=== PATIENT | female | born 1950 | race Caucasian/White ===

== ENCOUNTER → 2024-05-21 | Outpatient (CLI) | payer MEDICARE, BC, SELFPAY ==
--- NOTE | 2024-05-21 16:30 | XR_ITS ---
Examination: MRI abdomen , with intravenous contrast. Exam date and time: May 21, 2024 1654 hrs. Comparison MRI abdomen without contrast May 10, 2024 Indications: Abdominal pain, episodes of bright red blood per rectum beginning May 09, 2024, 10 x 9 mm hypointense mass in the body the pancreas on MRI abdomen without contrast May 21, 2024 Technique: Multiple axial, sagittal and coronal images of the dimension have been obtained with the Siemens high-resolution 1.5 Karina MRI scanner. Axial, sagittal and coronal images are obtained post intravenous injection 20 cc gadolinium. Findings: Enhancing liver or splenic lesion Contracted gallbladder no gallstones Gallbladder wall is not thickened No extrahepatic biliary tract dilatation Pancreatic duct is dilated up to 4 mm Nonenhancing 6 mm mass in the body head of the pancreas axial image 35 No hydronephrosis No abdominal lymphadenopathy Aorta normal size Impression: Nonenhancing 6 mm mass in the pancreas, likely cyst Recommend 3 month follow-up pancreas ultrasound
== END | disposition home or self-care (01) ==
PROVIDERS: PCP Family Medicine; Referring Provider Physician Assistant; Visit Provider Physician Assistant
DX: K86.9 Disease of pancreas, unspecified (principal)
CPT/HCPCS: 74182; A9579

== ENCOUNTER → 2024-06-11 | Outpatient (CLI) | payer MEDICARE, BC, SELFPAY ==
[2024-06-11 11:37] LABS: Glucose Estimated Average 217 mg/dL (80-131); Hemoglobin A1C 9.2 % Hgb (4.8-6.0)
[2024-06-11 11:42] LABS: Alanine Aminotransferase 16 U/L (10-49); Albumin, Serum 4.3 gm/dL (3.4-4.8); Albumin/Globulin Ratio 1.9 (1.2-2.2); Alkaline Phosphatase 94 U/L (46-116); Anion Gap 7 (7-16); Aspartate Amino Transferase 10 U/L (0-34); BUN/Creatinine Ratio 14 Ratio (12-20); Bilirubin,Total 0.6 mg/dL (0.3-1.2); Blood Urea Nitrogen 14 mg/dL (9-23); Calcium 9.6 mg/dL (8.3-10.6); Calcium (Corrected) 9.6 mg/dL (8.5-10.1); Cardiac Risk Estimate 3.7 RATIO (3.7-5.6); Chloride 101 mMol/L (98-107); Cholesterol 154 mg/dL (132-200); Globulin 2.3 gm/dL (2.3-3.5); Glucose 323 mg/dL (74-106); HDL Cholesterol 42 mg/dL (40-60); LDL Cholesterol,Calculated 71 mg/dL (0-130); Osmolality,Calculated 286 (275-295); Potassium 4.5 mMol/L (3.4-5.1); Sodium 137 mMol/L (136-145); Total Protein 6.6 gm/dL (5.7-8.2); Triglycerides 205 mg/dL (30-150); eGFR 59 See Note
== END | disposition home or self-care (01) ==
PROVIDERS: PCP Physician Assistant; Referring Provider Physician Assistant; Visit Provider Physician Assistant
DX: E11.65 Type 2 diabetes mellitus with hyperglycemia (principal); E78.5 Hyperlipidemia, unspecified; E05.90 Thyrotoxicosis, unspecified without thyrotoxic crisis or storm; I10 Essential (primary) hypertension
CPT/HCPCS: 36415; 80053; 80061; 83036; 84443

== ENCOUNTER → 2024-08-19 | Outpatient (CLI) | payer MEDICARE, BC, SELFPAY ==
[2024-08-19 15:31] LABS: Collection Type, Urine Clean Catch
[2024-08-19 17:02] LABS: Bacteria,Urine 1+; Bilirubin,Urine Negative (Negative); Blood,Urine Negative (Negative); Color,Urine Yellow (Lt Yel-Yel); Glucose, Urine 2+ (Negative); Hyaline Casts,Urine < 1 /hpf (0-1); Ketones,Urine 1+ (Negative); Leukocyte Esterase,Urine Positive (Negative); Nitrite,Urine Negative (Negative); Protein,Urine Trace (Neg - Trace); RBC,Urine 4 /hpf (0-3); Specific Gravity,Urine 1.015 (1.001-1.035); Squamous Epithelial Cell,Urine 7 /hpf (0-5); Urobilinogen,Urine Negative mg/dL (0.0-1.0); WBC,Urine 57 /hpf (0-5)
[2024-08-19 17:06] LABS: Clarity,Urine Hazy (Clear/Hazy)
== END | disposition home or self-care (01) ==
LOC: SLDO 15:17
PROVIDERS: PCP Family Medicine; Referring Provider Family Medicine; Visit Provider Family Medicine
DX: N39.0 Urinary tract infection, site not specified (principal)
CPT/HCPCS: 81001; 87086

== ENCOUNTER → 2024-09-05 | Outpatient (CLI) | payer MEDICARE, BC, SELFPAY ==
--- NOTE | 2024-09-05 14:32 | XR_ITS ---
Examination: PA lateral chest 2 views Technique: Upright PA lateral chest 2 views Exam date and time: September 05 2024 1710 hrs. Comparison October 04, 2023 Indications: Shortness of breath beginning 3 days ago. Findings: Normal heart size. Lungs are clear. No pneumonia or pulmonary edema Impression: No pneumonia or pulmonary edema
== END | disposition home or self-care (01) ==
PROVIDERS: PCP Physician Assistant; Referring Provider Physician Assistant; Visit Provider Physician Assistant
DX: R06.02 Shortness of breath (principal)
CPT/HCPCS: 71046

== ENCOUNTER → 2024-09-16 | Outpatient (CLI) | payer MEDICARE, BC, SELFPAY ==
[2024-09-16 16:57] LABS: Basophils # (Auto) 0.1 Thou/mm3 (0.0-0.2); Basophils % (Auto) 1 % (0-2.5); Eosinophils # (Auto) 0.2 Thou/mm3 (0.0-0.5); Eosinophils % (Auto) 2 % (0-10); Hematocrit 37.8 % (36.0-46.0); Hemoglobin 12.5 g/dL (12.0-16.0); Immature Granulocytes % (Auto) 0 % (0-0); Immature Granulocytes Auto 0.04 Thou/mm3 (0.00-0.00); Lymphocytes # (Auto) 2.5 Thou/mm3 (1.0-4.8); Lymphocytes % (Auto) 21 % (10-50); Mean Corpuscular HGB Conc 33.1 g/dl (31.0-37.0); Mean Corpuscular Hemoglobin 28.5 pg (25.0-35.0); Mean Corpuscular Volume 86 fL (80-100); Monocytes # (Auto) 0.9 Thou/mm3 (0.0-0.8); Monocytes % (Auto) 7 % (0-12); Neutrophils # (Auto) 8.1 Thou/mm3 (1.8-7.7); Neutrophils % (Auto) 68 % (37-80); Nucleated Red Blood Cell % 0 /100 WBC (0); Platelet Count 439 Thou/mm3 (140-440); RDW Standard Deviation 39.1 fL (36.4-46.3); Red Blood Count 4.38 Miln/mm3 (4.00-5.20); White Blood Count 11.9 Thou/mm3 (3.6-11.0)
[2024-09-16 19:05] LABS: Alanine Aminotransferase 20 U/L (10-49); Albumin, Serum 3.6 gm/dL (3.4-4.8); Albumin/Globulin Ratio 1.2 (1.2-2.2); Alkaline Phosphatase 173 U/L (46-116); Anion Gap 12 (7-16); Aspartate Amino Transferase 22 U/L (0-34); BUN/Creatinine Ratio 15 Ratio (12-20); Bilirubin,Total 0.5 mg/dL (0.3-1.2); Blood Urea Nitrogen 16 mg/dL (9-23); Calcium 9.2 mg/dL (8.3-10.6); Calcium (Corrected) 9.5 mg/dL (8.5-10.1); Carbon Dioxide 24.8 mMol/L (20.0-31.0); Chloride 95 mMol/L (98-107); Creatinine (Component) 1.1 mg/dL (0.6-1.3); Globulin 2.9 gm/dL (2.3-3.5); Glucose 397 mg/dL (74-106); Osmolality,Calculated 282 (275-295); Potassium 4.5 mMol/L (3.4-5.1); Sodium 132 mMol/L (136-145); Total Protein 6.5 gm/dL (5.7-8.2); eGFR 53 See Note
== END | disposition home or self-care (01) ==
PROVIDERS: PCP Physician Assistant; Referring Provider Physician Assistant; Visit Provider Physician Assistant
DX: R53.1 Weakness (principal)
CPT/HCPCS: 36415; 80053; 81001; 85025

== ENCOUNTER 2024-09-17 13:08 | Emergency (ER) | payer MEDICARE, BC, SELFPAY ==
[2024-09-17 13:09] VITALS: BMI 24.9
[2024-09-17 13:21] VITALS: BP 113/76; PULSE 100; RESP 18; TEMP 36.7; O2SAT 99
--- NOTE | 2024-09-17 13:36 | XR_ITS ---
Examination: CT abdomen and pelvis without contrast. Coronal 3-D reconstructions. Sagittal 2-D reconstructions. Date and time of exam:September 17, 2024 at 1557 hours Comparison October 08, 2023 INDICATIONS: Abdominal pain today, 6 mm pancreatic mass on MR abdomen May 21, 2024, diffuse colitis pattern on CT abdomen May 09, 2024 CTDI: vol (mGy): 7.67 DLP: (mGycm): 4.58 Technique: Axial images of the abdomen have been obtained, 3 mm slice thickness Intravenous contrast material has not been administered. Low dose protocols were performed. One or more of the following dose reduction techniques were used; automated exposure control, adjustment of the mA and/or KV according to patient size, use of iterative reconstruction technique. Findings: Stable calcified nodule left lower lobe Multiple liver lesions including upper right lobe of the liver 5 cm, axial image 45, anterior right lobe of the liver, 3 cm image 52, left lobe liver lesion 35 mm, axial image 57 No splenic mass Hypodense pancreatic mass again noted, 12 mm image 75 No hydronephrosis Aorta normal size Absent appendix No bowel obstruction No pelvic mass Urinary bladder intact IMPRESSION: Multiple hepatic lesions, differential would include hepatic metastases, primary multifocal hepatocellular carcinoma Recommend repeat MRI abdomen follow up pre and postcontrast Stable small mass body of the pancreas
--- NOTE | 2024-09-17 13:37 | PD.EDRME ---
Rapid Medical Screening Exam RME Arrival date/time: 09/17/24 13:08 73-year-old female with a history of hypertension, presents to the emergency room with a chief complaint of generalized weakness fatigue decreased oral and fluid intake, and a significant weight loss in the last month. Daughter at bedside states she was sent over by her primary care provider as there is also a mass in her pancreas. 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 I have greeted and performed a focused initial assessment of this patient. A comprehensive ED assessment and evaluation of the patient, analysis of all test results, and completion of the medical decision making process will be conducted by additional ED providers. Chief Complaint: General Adult/Misc Complain Time Seen by Provider: 09/17/24 13:23 Vital signs: Vital Signs Temperature 98.0 F 09/17/24 13:21 Pulse Rate 100 09/17/24 13:21 Respiratory Rate 18 09/17/24 13:21 Blood Pressure 113/76 09/17/24 13:21 Pulse Oximetry (%) 99 09/17/24 13:21 Oxygen Delivery Method Room Air 09/17/24 13:21 Vital signs reviewed by provider: Yes
[2024-09-17 14:01] LABS: Basophils # (Auto) 0.1 Thou/mm3 (0.0-0.2); Basophils % (Auto) 1 % (0-2.5); Eosinophils # (Auto) 0.2 Thou/mm3 (0.0-0.5); Eosinophils % (Auto) 2 % (0-10); Hematocrit 36.8 % (36.0-46.0); Hemoglobin 12.2 g/dL (12.0-16.0); Immature Granulocytes % (Auto) 0 % (0-0); Immature Granulocytes Auto 0.04 Thou/mm3 (0.00-0.00); Lymphocytes % (Auto) 15 % (10-50); Mean Corpuscular HGB Conc 33.2 g/dl (31.0-37.0); Mean Corpuscular Hemoglobin 29.2 pg (25.0-35.0); Mean Corpuscular Volume 88 fL (80-100); Monocytes # (Auto) 1.1 Thou/mm3 (0.0-0.8); Monocytes % (Auto) 8 % (0-12); Neutrophils # (Auto) 9.9 Thou/mm3 (1.8-7.7); Neutrophils % (Auto) 74 % (37-80); Nucleated Red Blood Cell % 0 /100 WBC (0); Platelet Count 411 Thou/mm3 (140-440); RDW Standard Deviation 39.8 fL (36.4-46.3); Red Blood Count 4.18 Miln/mm3 (4.00-5.20); White Blood Count 13.3 Thou/mm3 (3.6-11.0)
[2024-09-17 14:20] LABS: INR 1.1 (0.9-1.3); Partial Thromboplastin Time 21.4 Seconds (22.0-36.0); Prothrombin Time 12.4 Seconds (9.0-12.2)
[2024-09-17 14:37] LABS: Alanine Aminotransferase 16 U/L (10-49); Albumin, Serum 3.8 gm/dL (3.4-4.8); Albumin/Globulin Ratio 1.2 (1.2-2.2); Alkaline Phosphatase 157 U/L (46-116); Anion Gap 12 (7-16); Aspartate Amino Transferase 17 U/L (0-34); BUN/Creatinine Ratio 13 Ratio (12-20); Bilirubin,Total 0.6 mg/dL (0.3-1.2); Blood Urea Nitrogen 13 mg/dL (9-23); Calcium 9.3 mg/dL (8.3-10.6); Calcium (Corrected) 9.5 mg/dL (8.5-10.1); Carbon Dioxide 24.2 mMol/L (20.0-31.0); Chloride 95 mMol/L (98-107); Estimated Creatinine Clearance 46.1 mL/min (>60); Globulin 3.3 gm/dL (2.3-3.5); Osmolality,Calculated 280 (275-295); Potassium 4.4 mMol/L (3.4-5.1); Sodium 131 mMol/L (136-145); Total Protein 7.1 gm/dL (5.7-8.2); eGFR 59 See Note
[2024-09-17 14:43] LABS: Collection Type, Urine Clean Catch
[2024-09-17 14:43] LABS: Glucose 414 mg/dL (74-106)
--- NOTE | 2024-09-17 14:45 | PC.NURSE ---
CALL FROM [facility] W/ CRITICAL GLUCOSE 414. PUT IN COMMENTS BOX FOR
[2024-09-17 14:55] LABS: Bacteria,Urine Rare; Bilirubin,Urine Negative (Negative); Blood,Urine Negative (Negative); Color,Urine Yellow (Lt Yel-Yel); Glucose, Urine 4+ (Negative); Ketones,Urine Negative (Negative); Leukocyte Esterase,Urine Positive (Negative); Nitrite,Urine Negative (Negative); PH,Urine 5.5 (5.0-7.0); Protein,Urine 1+ (Neg - Trace); RBC,Urine 14 /hpf (0-3); Specific Gravity,Urine 1.029 (1.001-1.035); Squamous Epithelial Cell,Urine 8 /hpf (0-5); Urobilinogen,Urine Negative mg/dL (0.0-1.0); WBC,Urine 97 /hpf (0-5)
[2024-09-17 14:58] LABS: Clarity,Urine Hazy (Clear/Hazy); Culture Indicated,Urine Yes
--- NOTE | 2024-09-17 15:18 | PD.EDRME ---
Rapid Medical Screening Exam RME Arrival date/time: 09/17/24 13:08 09/17/24 13:08 73-year-old female with a history of hypertension, presents to the emergency room with a chief complaint of generalized weakness fatigue decreased oral and fluid intake, and a significant weight loss in the last month. Daughter at bedside states she was sent over by her primary care provider as there is also a mass in her pancreas. 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 I have greeted and performed a focused initial assessment of this patient. A comprehensive ED assessment and evaluation of the patient, analysis of all test results, and completion of the medical decision making process will be conducted by additional ED providers. Chief Complaint: General Adult/Misc Complain Time Seen by Provider: 09/17/24 13:23 Vital signs: Vital Signs Temperature 98.0 F 09/17/24 13:21 Pulse Rate 100 09/17/24 13:21 Respiratory Rate 18 09/17/24 13:21 Blood Pressure 113/76 09/17/24 13:21 Pulse Oximetry (%) 99 09/17/24 13:21 Oxygen Delivery Method Room Air 09/17/24 13:21 RME Narrative: 09/17/24 13:08 73-year-old female with a history of hypertension, presents to the emergency room with a chief complaint of generalized weakness fatigue decreased oral and fluid intake, and a significant weight loss in the last month. Daughter at bedside states she was sent over by her primary care provider as there is also a mass in her pancreas. 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 I have greeted and performed a focused initial assessment of this patient. A comprehensive ED assessment and evaluation of the patient, analysis of all test results, and completion of the medical decision making process will be conducted by additional ED providers.
[2024-09-17 19:38] VITALS: BP 103/69; PULSE 95; RESP 18; TEMP 36.8; O2SAT 100
--- NOTE | 2024-09-17 20:23 | PD.EDADULT ---
ED General RME/HPI General Chief complaint: General Adult/Misc Complain Stated complaint: SENT BY PCP FOR CT/MRI FOR FTT Time Seen by Provider: 09/17/24 13:23 Source: patient Arrival date/time: 09/17/24 13:08 Mode of arrival: ambulatory Limitations: no limitations RME / HPI RME / HPI narrative: 09/17/24 13:08 73-year-old female with a history of hypertension, presents to the emergency room with a chief complaint of generalized weakness fatigue decreased oral and fluid intake, and a significant weight loss in the last month. Daughter at bedside states she was sent over by her primary care provider as there is also a mass in her pancreas. 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 I have greeted and performed a focused initial assessment of this patient. A comprehensive ED assessment and evaluation of the patient, analysis of all test results, and completion of the medical decision making process will be conducted by additional ED providers. Dr. Garcia's Main ED Evaluation: 73yo female with a history of HTN, hyperthyroidism, Graves' disease, DM accompanied by her daughter presents to the ED for a chief complaint of failure to thrive. Patient states she's had abnormal weight loss over the last 3 weeks, reporting she has not been able to take of herself. She states she has not been taking her daily medications on a regular basis, reporting she has not taken her DM medication in over 2 weeks. She states she can't eat much without feeling full and has been feeling more generally weak. She denies any N/V, fever, chills, dysuria, abdominal pain or any other associated symptoms. Daughter states the patient had a biopsy of her pancreatic cyst in July in [place] and was told it was benign. She states the patient is due to get another follow-up scan. Related Data Home Medications ?Medication ?Instructions ?Recorded ?Confirmed glipizide 10 mg tablet 10 mg PO DAILY 05/10/18 05/10/24 loratadine 10 mg tablet (Claritin) 10 mg PO QDAY 05/10/18 05/10/24 montelukast 10 mg tablet 10 mg PO DAILY 05/10/18 05/10/24 (Singulair) atenolol 50 mg tablet 50 mg PO QDAY 04/30/19 05/10/24 bupropion HCl 75 mg tablet 75 mg PO DAILY 04/30/19 05/10/24 citalopram 40 mg tablet (Celexa) 40 mg PO QDAY 04/30/19 05/10/24 methimazole 10 mg tablet 20 mg PO DAILY 04/30/19 05/10/24 Allergies Allergy/AdvReac Type Severity Reaction Status Date / Time Penicillins AdvReac Severe DIARHEA Verified 09/17/24 13:13 Review of Systems Review of Systems Systems Reviewed: All systems reviewed, normal except as documented Past Medical History Past Medical History CARDIAC: Positive Hypertension; Negative Cardiac Disorders or Congestive Heart Failure RESPIRATORY: Positive Sleep Apnea (CPAP); Negative Chronic Obstructive Pulmonary Disease (COPD) or Asthma GASTROINTESTINAL: Positive Colitis GENITOURINARY: Negative Renal Disease REPRODUCTIVE: Positive Breast Cancer (RIGHT BREAST) and Previous Pregnancies () MUSCULOSKELETAL: Positive Arthritis ENDOCRINE: Positive Endocrine Disorders, Hyperthyroidism and Graves' Disease; Negative Diabetes Mellitus Type 1 or Diabetes Mellitus Type 2 HEMATOLOGIC: Negative Sickle Cell Disease PSYCHO/SOCIAL: Positive Depression (ON MEDS) OTHER HISTORY: Positive Hospitalization, Chemotherapy (2 ROUNDS OF CHEMO), Radiation Therapy (5 WEEKS), Chicken Pox and Breast Cancer (RIGHT BREAST) Family History FAMILY HISTORY: Positive Family Respiratory Disorders (MOTHER AND FATHER(VALLEY FEVER)), Family Cardiac Disorders (MOTHER AND FATHER), Family Gastrointestinal Problems (FATHER(ULCERATIVE COLITIS)) and Family Cancer (BROTHER( LIPOSARCOMA)) Surgical History SURGICAL: Positive Eye Surgery (BILATERAL EYELID SURGERY) and Mastectomy (RIGHT PARTIAL MASTECTOMY) Social History SMOKING STATUS: Never smoker ED Exam General Limitations: Present no limitations General appearance: Present alert and in no apparent distress Head Head exam: Present atraumatic Eye Eye exam: Present PERRL, EOMI and other (eye sockets are sunken) ENT ENT exam: Present normal exam, normal oropharynx and mucous membranes dry Neck Neck exam: Present normal inspection, full ROM and trachea midline Chest Chest inspection: Present normal inspection and symmetric chest wall rise Respiratory Respiratory exam: Present normal lung sounds bilaterally Cardiovascular Cardiovascular exam: Present regular rate, normal rhythm and normal heart sounds Abdominal Exam Abdominal exam: Present soft; Absent distention or organomegaly Extremities Exam Extremities exam: Present normal inspection and full ROM Back Exam Back exam: Present normal inspection and full ROM; Absent other (midline tenderness) Neurological Exam Neurological exam: Present alert, oriented X3 and CN II-XII intact Psychiatric Psychiatric exam: Present normal affect and normal mood Skin Skin exam: Present warm, dry, intact, normal color and other (decreased skin turgor) Course Quality Measures none Orders Category Date Time Status CT abdomen pelvis wo con Stat Exams 09/17/24 13:[address] head/brain wo con Stat Exams 09/17/24 20:45 Completed CBC Stat Lab 09/17/24 13:46 Completed CMP [Comprehensive Metabolic Panel] Stat Lab 09/17/24 13:46 Completed Free T4 (Free Thyroxine) Stat Lab 09/17/24 13:46 Completed PT [Prothrombin Time with INR] Stat Lab 09/17/24 13:46 Completed PTT [Partial Thromboplastin Time] Stat Lab 09/17/24 13:46 Completed Thyroid Stimulating Hormone Stat Lab 09/17/24 13:46 Completed UA, C/S IF [Urinalysis, C/S if Indicated] Stat Lab 09/17/24 14:25 Completed Urine Culture Stat Lab 09/17/24 14:25 Received Sodium Chloride 0.9% 1000 ml [Ns] 1,000 ml Med 09/17/24 20:38 Discontinued IV 999 mls/hr Sodium Chloride 0.9% 1000 ml [Ns] 1,000 ml Med 09/17/24 20:41 Discontinued IV 999 mls/hr Sodium Chloride 0.9% 1000 ml [Ns] 1,000 ml Med 09/18/24 02:14 Discontinued IV 999 mls/hr cefTRIAXone/D5w 1gm IV premix [Rocephin/D5w 1gm IV Med 09/17/24 19:57 Discontinued premix] 1 gm in 50 ml IV X1 Vital Signs Vital signs: Vital Signs Temperature 98.0 F 09/17/24 13:21 Pulse Rate 100 09/17/24 13:21 Respiratory Rate 18 09/17/24 13:21 Blood Pressure 113/76 09/17/24 13:21 Pulse Oximetry (%) 99 09/17/24 13:21 Oxygen Delivery Method Room Air 09/17/24 13:21 [facility] Patient data External records reviewed:: [facility] previous records (Per chart review, patient was admitted here on 05/10/24 for acute GI bleeding.) Clinical information provided by:: patient and family Social determinants that could affect healthcare access:: none Patient has the following chronic illnesses:: HTN, hyperthyroidism, Graves' disease, DM How is presenting disease/condition affected by chronic disease/condition?: caused by Evaluation data The following diagnostics were reviewed and interpreted by me:: lab results and radiology exam(s) Lab and/or radiology exams considered but not ordered:: none Interpretation Summary: WBC count is elevated at 13.3, Sodium is 131, Glucose is elevated at 414, Anion Gap is normal, UA is positive for a UTI, according to my interpretation. Examination: CT abdomen and pelvis without contrast. Date and time of exam:September 17, 2024 at 1557 hours Comparison October 08, 2023 INDICATIONS: Abdominal pain today, 6 mm pancreatic mass on MR abdomen May 21, 2024, diffuse colitis pattern on CT abdomen May 09, 2024 Findings: Stable calcified nodule left lower lobe Multiple liver lesions including upper right lobe of the liver 5 cm, axial image 45, anterior right lobe of the liver, 3 cm image 52, left lobe liver lesion 35 mm, axial image 57 No splenic mass Hypodense pancreatic mass again noted, 12 mm image 75 No hydronephrosis Aorta normal size Absent appendix No bowel obstruction No pelvic mass Urinary bladder intact IMPRESSION: Multiple hepatic lesions, differential would include hepatic metastases, primary multifocal hepatocellular carcinoma Recommend repeat MRI abdomen follow up pre and postcontrast Stable small mass body of the pancreas Dictated By: Arvind Handley MD Examination: CT brain head without contrast. Date and time of exam:September 17, 2034. 2210 hours INDICATIONS: Weakness today Findings: No significant ventricular enlargement. Intra-axial or extra-axial hemorrhage density is not seen. No mass effect or midline shift Basal cisterns are not remarkable. Fourth ventricle is midline. Cranial vault intact. Impression: Negative for acute hemorrhage, mass effect or midline shift Dictated By: Arvind Handley MD Medications Medications considered but not ordered:: none Medication administrations:: Medication Administration History Discontinued Medications Ceftriaxone Sodium/Dextrose (Rocephin/D5w 1gm Iv Premix) 1 gm in 50 mls @ 100 mls/hr IV X1 ONE Stop: 09/17/24 20:26 Last Infusion: 09/17/24 21:48 Dose: Infused Documented By: Admin: 09/17/24 21:17 Dose: 100 mls/hr Documented By: CLOVIS Sodium Chloride (Ns) 1,000 mls @ 999 mls/hr IV .Q1H1M ONE Stop: 09/17/24 21:38 Last Infusion: 09/17/24 23:30 Dose: Infused Documented By: Admin: 09/17/24 21:08 Dose: 999 mls/hr Documented By: CLOVIS Sodium Chloride (Ns) 1,000 mls @ 999 mls/hr IV .Q1H1M ONE Stop: 09/17/24 21:41 Last Infusion: 09/17/24 23:30 Dose: Infused Documented By: Admin: 09/17/24 21:10 Dose: 999 mls/hr Documented By: CLOVIS Sodium Chloride (Ns) 1,000 mls @ 999 mls/hr IV .Q1H1M ONE Stop: 09/18/24 03:14 Last Infusion: 09/18/24 03:11 Dose: Infused Documented By: Admin: 09/18/24 02:19 Dose: 999 mls/hr Documented By: MILDRED see above Consultations Consultation(s) initiated? (list below): No Diagnosis Differential Diagnosis ED Complaint MDM: Dehydration, electrolyte imbalance, hyperglycemia Most likely diagnosis given after review of the tests above:: Acute dehydration Admission Indicated Admission indicated?: not indicated Explain why admission is indicated or not indicated:: not indicated Admission Request Was there a request for admission?: No Disposition Plan Disposition Plan: Discharge Discharge Attestation Discharge Attestation: The patient and all family members were given an opportunity to ask questions and understood the discharge instructions. Discharge instructions specifically effects, indications for sooner follow up or return to the emergency department, and the expected course of current diagnosis. Patient condition: Stable Medical Decision Making MDM Narrative MDM Narrative: 73-year-old female with history of hypertension, diabetes on Ozempic coming in with worsening weight loss and dehydration over the last 1/2 weeks to the point where the patient has lost her appetite and does not want to eat. The patient otherwise has no evidence of hypotension, heart rate was 100 and white count was slightly elevated at 13. Otherwise no electrolyte abnormality. Glucose on arrival was 414 and the patient was given 2 L of fluid and her glucose was improved. The patient was able to get up and go to the Bathroom here and does not feel as awake from dehydration. Her daughter is here at the bedside and at this time the patient feels comfortable and at this time she feels comfortable going home. She will speak to her primary care about getting off her medications for her diabetes and switched to something different to avoid all this weight loss. Return precautions are given and understood. Differential Diagnosis Differential Diagnosis: Dehydration, electrolyte imbalance, hyperglycemia Lab Data 09/17/24 13:46 09/17/24 13:46 Labs: Lab Results 09/17/24 09/17/24 Range/Units 13:46 14:25 WBC 13.3 H (3.6-11.0) Thou/mm3 RBC 4.18 (4.00-5.20) Miln/mm3 Hgb 12.2 (12.0-16.0) g/dL Hct 36.8 (36.0-46.0) % MCV 88 (80-100) fL MCH 29.2 (25.0-35.0) pg MCHC 33.2 (31.0-37.0) g/dl RDW Std Deviation 39.8 (36.4-46.3) fL Plt Count 411 (140-440) Thou/mm3 Neut % (Auto) 74 (37-80) % Lymph % (Auto) 15 (10-50) % [place] % (Auto) 8 (0-12) % Eos % (Auto) 2 (0-10) % Baso % (Auto) 1 (0-2.5) % Neut # (Auto) 9.9 H (1.8-7.7) Thou/mm3 Lymph # (Auto) 2.0 (1.0-4.8) Thou/mm3 [place] # (Auto) 1.1 H (0.0-0.8) Thou/mm3 Eos # (Auto) 0.2 (0.0-0.5) Thou/mm3 Baso # (Auto) 0.1 (0.0-0.2) Thou/mm3 Immature Gran # (Auto) 0.04 H (0.00-0.00) Thou/mm3 Absolute Nucleated RBC 0.00 (0.00-0.00) Thou/mm3 Immature Gran % 0 (0-0) % Nucleated RBC % 0 (0) /100 WBC PT 12.4 H (9.0-12.2) Seconds INR 1.1 (0.9-1.3) APTT 21.4 L (22.0-36.0) Seconds Sodium 131 L (136-145) mMol/L Potassium 4.4 (3.4-5.1) mMol/L Chloride 95 L (98-107) mMol/L Carbon Dioxide 24.2 (20.0-31.0) mMol/L Anion Gap 12 (7-16) BUN 13 (9-23) mg/dL Creatinine 1.0 (0.6-1.3) mg/dL Estim Creat Clear Calc 46.1 L (>60) mL/min eGFR 59 L (60 - ) See Note BUN/Creatinine Ratio 13 (12-20) Ratio Glucose 414 H* (74-106) mg/dL Calculated Osmolality 280 (275-295) Calcium 9.3 (8.3-10.6) mg/dL Corrected Calcium 9.5 (8.5-10.1) mg/dL Total Bilirubin 0.6 (0.3-1.2) mg/dL AST 17 (0-34) U/L ALT 16 (10-49) U/L Alkaline Phosphatase 157 H (46-116) U/L Total Protein 7.1 (5.7-8.2) gm/dL Albumin 3.8 (3.4-4.8) gm/dL Globulin 3.3 (2.3-3.5) gm/dL Albumin/Globulin Ratio 1.2 (1.2-2.2) TSH 1.66 (0.55-4.78) uIU/mL Free T4 1.36 (0.89-1.76) ng/dL Ur Collection Type Clean Catch Urine Color Yellow (Lt Yel-Yel) Urine Clarity Hazy (Clear/Hazy) Urine pH 5.5 (5.0-7.0) Ur Specific [place] 1.029 (1.001-1.035) Urine Protein 1+ A (Neg - Trace) Urine Glucose (UA) 4+ A (Negative) Urine Ketones Negative (Negative) Urine Blood Negative (Negative) Urine Nitrite Negative (Negative) Urine Bilirubin Negative (Negative) Urine Urobilinogen (Auto) Negative (0.0-1.0) mg/dL Ur Leukocyte Esterase Positive (Negative) Urine RBC 14 H (0-3) /hpf Urine WBC 97 H (0-5) /hpf Ur Squamous Epith Cells 8 H (0-5) /hpf Urine Bacteria Rare (None) Ur Culture Indicated? Yes Discharge Plan Plan Patient Disposition: HOME (Self Care) Patient condition on transfer: Stable Prescriptions/Referrals Prescriptions/Med Rec: No Action glipizide 10 mg Tablet 10 mg PO DAILY montelukast [Singulair] 10 mg Tablet 10 mg PO DAILY loratadine [Claritin] 10 mg Tablet 10 mg PO QDAY methimazole 10 mg Tablet 20 mg PO DAILY atenolol 50 mg Tablet 50 mg PO QDAY citalopram [Celexa] 40 mg Tablet 40 mg PO QDAY bupropion HCl 75 mg Tablet 75 mg PO DAILY Referrals: Dwaine Decker MD [Primary Care Provider] - In 1 week Problem List Clinical Impression: Acute dehydration Patient/Caregiver Discharge Instructions Education Materials: ED Dehydration (Adult) Additional Instructions: Return to emergency department for worsening symptoms, or any other concerns. Please talk to your physician about the Ozempic. At this time you probably are not on too much and it needs to be adjusted. However your blood sugar also needs to be controlled. Return to the emergency department for worsening symptoms, or any other concerns. Print Language: [place]au[place] Stand Alone Forms: [facility] Award Info., Patient Portal Info Letter
[2024-09-17 20:26] VITALS: BP 128/78; PULSE 94; RESP 19; TEMP 36.9; O2SAT 97
--- NOTE | 2024-09-17 20:45 | XR_ITS ---
Examination: CT brain head without contrast. 2-D sagittal coronal reconstructions Date and time of exam:September 17, 2034. 2210 hours INDICATIONS: Weakness today CTDI: vol (mGy):47.5 DLP: (mGycm):911 Technique: Multiple CT axial sections of the brain have been obtained, 5 mm slice thickness. Contrast has not been administered. 2-D sagittal, coronal reconstructions have been obtained Low dose protocols were performed. One or more of the following dose reduction techniques were used; automated exposure control, adjustment of the mA and/or KV according to patient size, use of iterative reconstruction technique. Findings: No significant ventricular enlargement. Intra-axial or extra-axial hemorrhage density is not seen. No mass effect or midline shift Basal cisterns are not remarkable. Fourth ventricle is midline. Cranial vault intact. Impression: Negative for acute hemorrhage, mass effect or midline shift
[2024-09-17 21:03] VITALS: PULSE 93; RESP 20; O2SAT 97
[2024-09-17] MEDS: SODIUM CHLORIDE 0.9% 1000 ML 1,000 ML 999 ML IV ×2 (21:08→21:10)
[2024-09-17] MEDS: cefTRIAXone/D5w 1gm IV premix 1 GM/50 ML BAG IV (21:17)
[2024-09-17 22:00] VITALS: PULSE 92; RESP 21; O2SAT 99
[2024-09-17 23:00] VITALS: BP 121/71; PULSE 92; RESP 19; O2SAT 98
[2024-09-17 23:12] LABS: Free T4 (Free Thyroxine) 1.36 ng/dL (0.89-1.76); Thyroid Stimulating Hormone 1.66 uIU/mL (0.55-4.78)
[2024-09-18] MEDS: SODIUM CHLORIDE 0.9% 1000 ML 1,000 ML 999 ML IV (02:19)
[2024-09-18 03:28] VITALS: BP 117/62; PULSE 87; RESP 17; O2SAT 98
== END 2024-09-18 03:32 | disposition home or self-care (01) ==
PROVIDERS: Nurse Practitioner Family; Emergency Provider Emergency Medicine; PCP Family Medicine
DX: E86.0 Dehydration (principal); R53.1 Weakness; K76.9 Liver disease, unspecified; R22.0 Localized swelling, mass and lump, head; D72.829 Elevated white blood cell count, unspecified
CPT/HCPCS: 36415; 70450; 74176; 80053; 81001; 84439; 84443; 85025; 85610; 85730; 87086; 96361; 96365; 99284; J0696; J7030

== ENCOUNTER → 2024-09-27 | Outpatient (CLI) | payer MEDICARE, BC, SELFPAY ==
--- NOTE | 2024-09-27 15:45 | XR_ITS ---
Examination: MRI abdomen with intravenous contrast. MRI abdomen without intravenous contrast. Date and time of exam: September 27, 2024 1548 hours Comparison May 21, 2024, CT abdomen September 17, 2024 Technique: Multiple axial, sagittal and coronal sections of the abdomen obtained. Transverse images, TR 6020, TE 107. T1 weighted transverse images, TR 582, TE 9.5. T2-weighted sagittal images, TR 4000, TE 105. T2-weighted sagittal images, TR 4000, TE 5. Coronal images, TR 4210, TE 107. Axial and coronal images are obtained post 19 cc intravenous injection, gadolinium. Findings: Compared to the MR abdomen May 21, 2024 interval numerous hepatic lesions, the largest in the anterior left lobe of the liver 4 cm, in the right lobe of liver 3.7 cm Hepatomegaly 18 cm Spleen is not enlarged No adrenal mass Aorta normal size No hydronephrosis No ascites No extrahepatic biliary tract dilatation, no gallstones, tiny subcentimeter cysts in the body and tail of the pancreas IMPRESSION: The liver is replaced by hepatic metastases versus multifocal primary hepatocellular carcinoma One of these lesions is amenable to CT-guided percutaneous biopsy as clinically warranted
== END | disposition home or self-care (01) ==
LOC: SMRI 15:15
PROVIDERS: Referring Provider Physician Assistant; Visit Provider Physician Assistant
DX: R93.2 Abnormal findings on diagnostic imaging of liver and biliary tract (principal)
CPT/HCPCS: 74183; A9579

== ENCOUNTER → 2024-10-30 | Outpatient (CLI) | payer MEDICARE, BC, SELFPAY ==
[2024-10-30 16:02] LABS: Basophils # (Auto) 0.1 Thou/mm3 (0.0-0.2); Basophils % (Auto) 1 % (0-2.5); Eosinophils # (Auto) 0.2 Thou/mm3 (0.0-0.5); Eosinophils % (Auto) 3 % (0-10); Hematocrit 32.2 % (36.0-46.0); Hemoglobin 10.4 g/dL (12.0-16.0); Immature Granulocytes % (Auto) 0 % (0-0); Immature Granulocytes Auto 0.02 Thou/mm3 (0.00-0.00); Lymphocytes % (Auto) 26 % (10-50); Mean Corpuscular HGB Conc 32.3 g/dl (31.0-37.0); Mean Corpuscular Hemoglobin 27.3 pg (25.0-35.0); Mean Corpuscular Volume 85 fL (80-100); Monocytes # (Auto) 0.5 Thou/mm3 (0.0-0.8); Monocytes % (Auto) 7 % (0-12); Neutrophils # (Auto) 4.9 Thou/mm3 (1.8-7.7); Neutrophils % (Auto) 64 % (37-80); Nucleated Red Blood Cell % 0 /100 WBC (0); Platelet Count 298 Thou/mm3 (140-440); Red Blood Count 3.81 Miln/mm3 (4.00-5.20); White Blood Count 7.6 Thou/mm3 (3.6-11.0)
[2024-10-30 16:31] LABS: Alanine Aminotransferase 14 U/L (10-49); Albumin, Serum 3.6 gm/dL (3.4-4.8); Albumin/Globulin Ratio 1.2 (1.2-2.2); Alkaline Phosphatase 164 U/L (46-116); Anion Gap 7 (7-16); Aspartate Amino Transferase 14 U/L (0-34); BUN/Creatinine Ratio 16 Ratio (12-20); Bilirubin,Total 0.3 mg/dL (0.3-1.2); Blood Urea Nitrogen 16 mg/dL (9-23); Calcium 8.7 mg/dL (8.3-10.6); Carbon Dioxide 29.6 mMol/L (20.0-31.0); Chloride 100 mMol/L (98-107); Globulin 2.9 gm/dL (2.3-3.5); Glucose 283 mg/dL (74-106); Osmolality,Calculated 285 (275-295); Sodium 137 mMol/L (136-145); Total Protein 6.5 gm/dL (5.7-8.2); eGFR 59 See Note
== END | disposition home or self-care (01) ==
PROVIDERS: PCP Family Medicine; Referring Provider Physician Assistant; Visit Provider Physician Assistant
DX: D64.9 Anemia, unspecified (principal); R94.5 Abnormal results of liver function studies
CPT/HCPCS: 36415; 80053; 85025